=== PATIENT | female | born 1985 | race Two or more races ===

== ENCOUNTER 2024-10-29 10:09 | Inpatient (IN) | payer OTHER ==
[~2024-10-29] VITALS: Ht 152.4 cm; Wt 63.0 kg
[2024-11-10 07:54] VITALS: BP 114/77
[2024-11-10] MEDS ORDERED: OXYTOCIN 500 ML IV ONE (09:00)
[2024-11-10] MEDS ORDERED: RINGERS SOLUTION,LACTATED 1,000 ML IV SCH (09:15)
[2024-11-10] MEDS ORDERED: PRENATA CHEWAB1 EACH PO (09:18)
[2024-11-10 11:05] LABS: BASO % 0.7 % (0.1-1.2); EOS # 0.05 (0.04-0.54); EOS % 0.4 % (0.7-7.0); LYMPH # 1.33 (1.18-3.74); LYMPH % 11.7 % (19.3-53.1); MEAN PLATELET VOLUME 12.00 fl (9.4-12.4); MONO # 0.61 (0.24-0.82); MONO % 5.4 % (4.7-12.5); NEUT # 9.24 (1.56-6.13); NEUT % 81.5 % (34.0-71.1); RED CELL DISTRIBUTION WIDTH 15.2 % (11.6-14.4)
[2024-11-10 11:50] LABS: INR 0.94
[2024-11-10 12:00] LABS: ALT/SGPT 21.0 U/L (12-78); AST/SGOT 15.0 U/L (15-37); BILIRUBIN TOTAL 0.56 mg/dL (0.3-1.2); BUN CREA RATIO 16.0 (7.0-25.0); CREATININE SERUM 0.96 mg/dL (0.55-1.02); GFR 64.7; GLOBULINA 3.5 G/DL (2.4-3.5); GLUCOSE FASTING 70.0 mg/dL (65-100); OSMOLALITY SERUM 280.0 MOSM/KG (275-295)
[2024-11-10] MEDS ORDERED: ERYTHROMYCIN BASE OPHT 1GM EACH TUBE OP ONE ×2 (12:55→13:00)
[2024-11-10] MEDS ORDERED: CHLORHEXIDINE GLUCONATE 120 ML BOTTLE TOP ONE (12:56)
[2024-11-10] MEDS ORDERED: LIDOCAINE HCL 1% 10ML VIAL ONE (12:56)
[2024-11-10] MEDS ORDERED: OXYTOCIN 20 UNITS/1000ML RL PIGGYBAG IV ONE (12:56)
[2024-11-10] MEDS ORDERED: LIDOCAINE HCL 1% 10ML VIAL IJ ONE (13:00)
[2024-11-10] MEDS ORDERED: OXYTOCIN 1,000 ML IV ONE (13:00)
[2024-11-10 14:00] VITALS: BP 112/67
[2024-11-10] MEDS ORDERED: OXYTOCIN 1,000 ML IV SCH (15:00)
[2024-11-10] MEDS ORDERED: CHLORHEXIDINE GLUCONATE 120 ML BOTTLE TOP SCH (15:00)
[2024-11-10 16:38] VITALS: BP 114/70
[2024-11-11 02:04] VITALS: BP 93/63
[2024-11-11 06:17] LABS: BASO % 0.5 % (0.1-1.2); EOS # 0.05 (0.04-0.54); EOS % 0.3 % (0.7-7.0); LYMPH # 2.52 (1.18-3.74); LYMPH % 16.4 % (19.3-53.1); MEAN PLATELET VOLUME 11.20 fl (9.4-12.4); MONO # 1.31 (0.24-0.82); MONO % 8.5 % (4.7-12.5); NEUT # 11.30 (1.56-6.13); NEUT % 73.8 % (34.0-71.1); RED CELL DISTRIBUTION WIDTH 15.0 % (11.6-14.4)
[2024-11-11 08:07] VITALS: BP 112/67
[2024-11-11 16:00] VITALS: BP 111/70
[2024-11-11] MEDS ORDERED: HYDROCORTISONE 2.5% 30 GM TUBE RECTAL SCH (17:54)
[2024-11-12] VITALS: BP 90/60
[2024-11-12 09:06] VITALS: BP 105/67
== END 2024-11-12 14:17 | disposition home or self-care (01) | DRG 807 ==
LOC: LDR 11-10 08:54 → OB/GYN 11-10 16:07 → LDR 11-13 10:09
PROVIDERS: Obstetrics & Gynecology; ADMIT Obstetrics & Gynecology; ATTEND Obstetrics & Gynecology
PROC: 10E0XZZ Delivery of Products of Conception, External Approach (ICD-10-PCS; principal; 2024-11-10)
PROC: 0KQM0ZZ Repair Perineum Muscle, Open Approach (ICD-10-PCS; 2024-11-10)
PROC: 4A1HXCZ Monitoring of Products of Conception, Cardiac Rate, External Approach (ICD-10-PCS; 2024-11-10)
DX: O70.1 Second degree perineal laceration during delivery (principal); Z37.0 Single live birth; Z3A.39 39 weeks gestation of pregnancy

== ENCOUNTER 2024-11-04 13:16 | Outpatient (CLI) | payer OTHER | END 2024-11-04 14:41 | disposition home or self-care (01) | LOC: NST 13:16 | PROVIDERS: ATTEND Obstetrics & Gynecology Maternal & Fetal Medicine | DX: Z34.83 Encounter for supervision of other normal pregnancy, third trimester (principal) ==